=== PATIENT | male | born 1985 | race Caucasian/White ===

== ENCOUNTER 2024-03-09 22:57 | Emergency (ER) | payer SELFPAY ==
[2024-03-09] MEDS ORDERED: BACIGUENT PACKET ONE (23:17)
--- NOTE | 2024-03-09 23:18 | ERPHSYRPT ---
- History of Present Illness Time Seen by Provider: 03/09/24 23:08 Source: patient Exam Limitations: no limitations Physician History: 38-year-old male presents to our ED escorted by PD for medical clearance. Patient was reportedly in a local store wearing underwear only. Patient was observed to have laceration of this finger. Patient reported injuring his finger on a thin piece of metal. EMS evaluated patient and dressed the finger. Patient was brought to our ED for medical clearance. No trauma. Patient appears intoxicated. He is mentating well. Patient answering questions appropriately. Patient in no acute distress. Patient reports his tetanus is up-to-date Portions of this note were created with voice recognition technology. There may be grammatical, spelling, punctuation or sound alike errors Timing/Duration: today Severity: moderate Modifying Factors: Improves With: nothing Associated Symptoms: denies symptoms Allergies/Adverse Reactions: No Known Drug Allergies Allergy (Unverified 03/09/24 22:58) Home Medications: No Reportable Medications [No Reported Medications] 03/09/24 [History] - Review of Systems Constitutional: No Symptoms, No Fever, No Chills Eyes: No Symptoms Ears, Nose, & Throat: No Symptoms Respiratory: No Symptoms, No Cough, No Dyspnea Cardiac: No Symptoms, No Chest Pain, No Edema, No Syncope Abdominal/Gastrointestinal: No Symptoms, No Abdominal Pain, No Nausea, No Vomiting, No Diarrhea Genitourinary Symptoms: No Symptoms, No Dysuria Musculoskeletal: No Symptoms, No Back Pain, No Neck Pain Skin: No Symptoms, No Rash Neurological: No Symptoms, No Dizziness, No Focal Weakness, No Sensory Changes Psychological: No Symptoms Endocrine: No Symptoms Hematologic/Lymphatic: No Symptoms Immunological/Allergic: No Symptoms All Other Systems: Reviewed and Negative - Nursing Vital Signs Nursing Vital Signs: Initial Vital Signs Temperature 98.7 F 03/09/24 22:58 Pulse Rate 121 H 03/09/24 22:58 Respiratory Rate 20 03/09/24 22:58 Blood Pressure 134/77 03/09/24 22:58 O2 Sat by Pulse Oximetry 97 03/09/24 22:58 Pain Scale Pain Intensity 0 - Physical Exam General Appearance: no apparent distress, alert Eye Exam: PERRL/EOMI, eyes nml inspection Ears, Nose, Throat Exam: normal ENT inspection, TMs normal, pharynx normal, moist mucous membranes Neck Exam: normal inspection, non-tender, supple, full range of motion Respiratory Exam: normal breath sounds, lungs clear, airway intact, No respiratory distress Cardiovascular Exam: regular rate/rhythm, normal heart sounds, normal peripheral pulses Gastrointestinal/Abdomen Exam: soft, normal bowel sounds, No tenderness, No mass Back Exam: normal inspection, normal range of motion, No CVA tenderness, No vertebral tenderness Extremity Exam: normal inspection, normal range of motion, pelvis stable, other (Laceration medial aspect left index finger just proximal to the PIP joint. No tendon involvement. The involved digits neurovascular intact distally compartments are soft cap refill less than 2 seconds.) Neurologic Exam: alert, oriented x 3, cooperative, normal mood/affect, nml cerebellar function, nml station & gait, sensation nml, No motor deficits Skin Exam: normal color, warm, dry, No rash Lymphatic Exam: No adenopathy SpO2 Interpretation: normal SpO2: 97 O2 Delivery: Room Air - Course Nursing assessment & vital signs reviewed: Yes Ordered Tests: Active Orders 24 hr Category Date Time Status AMA [Release AMA] OM.NOW Care 03/09/24 23:21 Active CBC W DIFF Stat Lab 03/09/24 23:10 Completed CMP Stat Lab 03/09/24 23:10 Completed ETHYL ALCOHOL Routine Lab 03/09/24 23:10 Completed Medication Summary Discontinued Medications Generic Name Dose Route Start Last Admin Trade Name Freq PRN Reason Stop Dose Admin Bacitracin Zinc Confirm 03/09/24 23:17 Bacitracin Packet 1 Each Pckt Administered 03/09/24 23:18 Dose 1 each .ROUTE .STK-MED ONE Bacitracin Zinc 0.9 each 03/09/24 23:28 03/09/24 23:30 Bacitracin Packet 1 Each Pckt TP 03/09/24 23:29 0.9 each STAT ONE Administration Lab/Rad Data: Laboratory Result Diagrams 03/09/24 23:10 03/09/24 23:10 Laboratory Results 03/09/24 03/09/24 03/09/24 Range/Units 23:10 23:10 23:10 WBC 9.2 H (4.23-9.07) x10^3/uL RBC 5.57 (4.63-6.08) x10^6/uL Hgb 16.7 (13.7-17.5) g/dL Hct 49.7 (40.1-51.0) % MCV 89.2 (79.0-92.2) fL MCH 30.0 (25.7-32.2) pg MCHC 33.6 (32.3-36.5) g/dL RDW 12.4 (11.6-14.4) % Plt Count 297 (163-337) x10^3/uL MPV 9.8 (9.4-12.4) fL Gran % 47.1 (34.0-67.9) % Immature Gran % (Auto) 1.0 H (0.001-0.429) % Nucleat RBC Rel Count 0.0 (0.00-0.2) % Eos # (Auto) 0.25 (0.04-0.54) x10^3/uL Immature Gran # (Auto) 0.09 H (0.001-0.031) x10^3u/L Absolute Lymphs (auto) 3.79 H (1.32-3.57) x10^3/uL Absolute Monos (auto) 0.64 (0.30-0.82) x10^3/uL Absolute Nucleated RBC 0.00 (0.00-0.012) x10^3u/L Lymphocytes % 41.2 (21.8-53.1) % Monocytes % 7.0 (5.3-12.2) % Eosinophils % 2.7 (0.8-7.0) % Basophils % 1.0 (0.2-1.2) % Absolute Granulocytes 4.33 (1.78-5.38) x10^3/uL Basophils # 0.09 H (0.01-0.08) x10^3/uL Sodium 145 (135-145) mmol/L Potassium 4.2 (3.5-5.1) mmol/L Chloride 109 H (98-107) mmol/L Carbon Dioxide 23 (22-30) mmol/L Anion Gap 17.1 H (5-15) MEQ/L BUN 13 (9-20) mg/dL Creatinine 1.31 H (0.66-1.25) mg/dL Estimated GFR 70.6 ML/MIN Glucose 111 H (74-106) mg/dL Calcium 10.8 H (8.4-10.2) mg/dL Total Bilirubin 0.40 (0.2-1.3) mg/dL AST 31 (17-59) U/L ALT 24 (0-50) U/L Alkaline Phosphatase 96 (38-126) U/L Serum Total Protein 7.0 (6.3-8.2) g/dL Albumin 4.3 (3.5-5.0) g/dL Ethyl Alcohol 210 H (0-10) mg/dL - Progress Progress: improved Progress Note: 38-year-old male presents to our ED for evaluation of alcohol intoxication. On physical exam patient has a laceration to the left ring finger. No involvement of the flexor or extensor tendons. The involved digits neurovascular intact distally. Compartments are soft cap refill less than 2 seconds. Patient refused suture repair of the involved digit. Patient does not want antibiotics. However prescription for Augmentin forwarded was provided to please officers's old medical can initiate antibiotic therapy tomorrow. Patient reports tetanus is up-to-date. Patient declined IV. Patient declined therapy. Patient discharged AGAINST MEDICAL ADVICE. Patient is of sound mind. Patient is appropriate to make informed and independent medical decisions. Patient understands that leaving AGAINST MEDICAL ADVICE can result in delayed diagnosis, increased risk of morbidity, mortality, short and long-term disability including . In spite of these risks, alan daugherty has decided to leave AGAINST MEDICAL ADVICE. Patient understands that he may return to our ED at any point if he reconsiders. Patient agrees to follow- up with his primary care doctor within 48 hours for reevaluation. Patient voices no other complaints or concerns at this time. We will release patient AGAINST MEDICAL ADVICE per their request. Portions of this note were created with voice recognition technology. There may be grammatical, spelling, punctuation or sound alike errors Complexity problem addressed is moderate acute complicated. No critical care time. Complex of data reviewed and analyzed is moderate. Test ordered test reviewed results analyzed and correlated clinically with history and physical examination. Risk of complication and or risk of morbidity/mortality patient management is moderate. A prescription for Augmentin forwarded to patient's pharmacy. Vital stable. Time spent to discharge patient approximately 20 minutes. Plan of care established for shared decision making. No social determinants of health present impede follow-up. Portions of this note were created with voice recognition technology. There may be grammatical, spelling, punctuation or sound alike errors 03/10/24 00:15 Patient refused suture repair however he requested Steri-Strips and Dermabond. Steri-Strips or Dermabond bobby applied per RN. 03/10/24 00:41 Counseled pt/family regarding: lab results, diagnosis - Departure Departure Disposition: AMA Clinical Impression: Alcohol intoxication, Finger laceration Condition: Stable Critical Care Time: No Referrals: HARRY CARDENAS [ACTIVE STAFF] - Follow up/PCP as directed Additional Instructions: Discharge/Care Plan LAUREN VENEGAS was seen on 03/09/24 in the Emergency Room. The patient was counseled regarding Diagnosis,Lab results, Imaging studies, need for follow up and when to return to the Emergency Room. Prescriptions given: Discharge Note I have spoken with the patient and/or caregivers. I have explained the patient's condition, diagnosis and treatment plan based on the information available to me at this time. I have answered the patient's and/or caregiver's questions and addressed any concerns. The patient and/or caregivers have as good understanding of the patient's diagnosis, condition and treatment plan as can be expected at this point. The vital signs have been stable. The patient's condition is stable and appropriate for discharge from the emergency department. The patient will pursue further outpatient evaluation with the primary care physician or other designated or consulting physician as outlined in the discharge instructions. The patient and/or caregivers are agreeable to this plan of care and follow-up instructions have been explained in detail. The patient and/or caregivers have received these instruction. The patient/and or caregivers are aware that any significant change in condition or worsening of symptoms should prompt an immediate return to this or the closest emergency department or call 911.
[2024-03-09 23:22] VITALS: TEMP 98.7
[2024-03-09] MEDS: BACIGUENT PACKET TP ONE (23:30)
[2024-03-09 23:37] LABS: Absolute Neutrophil Ct (ANC) 4.33 x10^3/uL (1.78-5.38); Basophil (Absolute #) 0.09 x10^3/uL (0.01-0.08); Eosinophil % 2.7 % (0.8-7.0); Eosinophil (Absolute #) 0.25 x10^3/uL (0.04-0.54); Hematocrit 49.7 % (40.1-51.0); Hemoglobin 16.7 g/dL (13.7-17.5); IMMATURE GRAN # 0.09 x10^3u/L (0.001-0.031); Lymphocyte (Absolute #) 3.79 x10^3/uL (1.32-3.57); Lymphocytes % 41.2 % (21.8-53.1); Mean Cell Volume 89.2 fL (79.0-92.2); Mean Corpuscular Hgb Concent. 33.6 g/dL (32.3-36.5); Mean Platelet Volume 9.8 fL (9.4-12.4); Monocyte (Absolute #) 0.64 x10^3/uL (0.30-0.82); Neutrophil % 47.1 % (34.0-67.9); Platelet Count 297 x10^3/uL (163-337); Red Blood Count 5.57 x10^6/uL (4.63-6.08); Red Cell Distribution Width 12.4 % (11.6-14.4); White Blood Count 9.2 x10^3/uL (4.23-9.07)
[2024-03-09 23:50] LABS: ALBUMIN 4.3 g/dL (3.5-5.0); ANION GAP 17.1 MEQ/L (5-15); BILIRUBIN,TOTAL 0.4 mg/dL (0.2-1.3); Calcium 10.8 mg/dL (8.4-10.2); Creatinine 1 1.31 mg/dL (0.66-1.25); EST GLOMERULAR FILTRATION RATE 70.6 ML/MIN; Potassium 4.2 mmol/L (3.5-5.1)
[2024-03-10 00:01] VITALS: BP 136/86; PULSE 108; RESP 19
[2024-03-10 00:18] VITALS: O2SAT 97
[2024-03-10] MEDS ORDERED: Augmentin 875-125 Tablet ONE (00:29)
[2024-03-10] MEDS: Augmentin 875-125 Tablet PO ONE (00:41)
== END 2024-03-10 00:45 | disposition left against medical advice (07) ==
LOC: ED 22:57
DX: F10.129 Alcohol abuse with intoxication, unspecified (principal); Y90.7 Blood alcohol level of 200-239 mg/100 ml; S61.211A Laceration without foreign body of left index finger without damage to nail, initial encounter; W26.9XXA Contact with unspecified sharp object(s), initial encounter
CPT/HCPCS: 36415; 80053; 82077; 85025; 99282; A9270-GY